=== PATIENT | female | born 1960 | race Caucasian/White ===

== ENCOUNTER 2024-01-31 08:00 | Emergency (ER) | payer OTHER, SELFPAY ==
[2024-01-31 08:10] VITALS: BP 168/108; PULSE 80; TEMP 36.6; O2SAT 96; BMI 37.9
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
--- NOTE | 2024-01-31 08:25 | ED.GENADUL1 ---
HPI HPI - General Adult General Chief complaint: Extremity Injury, Upper Stated complaint: UPPER EXTREMITY PAIN Time Seen by Provider: 01/31/24 08:17 Source: patient Mode of arrival: walk-in Limitations: no limitations History of Present Illness HPI narrative: 63-year-old female presents for pain in her right upper arm. It has been like that for a week and she recalls no injury. She has no pain in the elbow or the shoulder, just in the right bicep area. It hurts more to push on it or move it into certain positions. Related Data Home Medications ?Medication ?Instructions ?Recorded ?Confirmed bupropion HCl 150 mg 24 hr tablet, 150 mg PO DAILY 01/31/24 01/31/24 extended release celecoxib 200 mg capsule 200 mg PO Q12H 01/31/24 01/31/24 Allergies Allergy/AdvReac Type Severity Reaction Status Date / Time No Known Drug Allergies Allergy Verified 01/31/24 08:09 Opioid HPI Opioid Management Most Recent Opioid Data: Last Pain Scale 5 01/31/24 08:22 Last ED Pain Assessment 01/31/24 08:20 Review of Systems ROS Narrative A ten point review of systems is negative except as noted above. Exam Narrative Exam Narrative: Nurses note and vital signs reviewed and patient is not hypoxic. General: The patient appears well and in no apparent distress. Patient is resting comfortably on cart. Skin: Warm, dry, no pallor noted. There is no rash noted. Head: Normocephalic, atraumatic Eye: Normal conjunctiva, no drainage Ears, Nose, Mouth, and Throat: oral mucosa is moist. Nares patent. Cardiovascular: Regular Rate and Rhythm Respiratory: Patient is in no distress, no accessory muscle use, lungs are clear to auscultation, no wheezing, rales or rhonchi GI: Soft and nontender Musculoskeletal: The right elbow and shoulder are nontender and have full range of motion. She has some tenderness without any swelling mass bruising or rash in the right bicep area. Neurological: A&O, normal speech Psychiatric: Cooperative Constitutional Vital Signs, click to edit/add: Last Vital Signs Temp 98 F 01/31/24 08:10 Pulse 80 01/31/24 08:10 Resp 20 01/31/24 08:10 BP 168/108 H 01/31/24 08:10 Pulse Ox 96 01/31/24 08:10 O2 Del Method Room Air 01/31/24 08:10 Course Vital Signs Vital signs: Vital Signs Temperature 98 F 01/31/24 08:10 Pulse Rate 80 01/31/24 08:10 Respiratory Rate 20 01/31/24 08:10 Blood Pressure 168/108 H 01/31/24 08:10 Pulse Oximetry 96 01/31/24 08:10 Oxygen Delivery Method Room Air 01/31/24 08:10 Temperature 98 F 01/31/24 08:10 Pulse Rate 80 01/31/24 08:10 Respiratory Rate 20 01/31/24 08:10 Blood Pressure 168/108 H 01/31/24 08:10 Pulse Oximetry 96 01/31/24 08:10 Oxygen Delivery Method Room Air 01/31/24 08:10 Medical Decision Making MDM Narrative Medical decision making narrative: X-rays negative except for degenerative changes in the acromioclavicular joint area. Sling applied, application checked by me and found to be appropriate, she is neurovascular intact. I have no clinical suspicion of DVT. Treatment diagnosis and follow-up were discussed with the patient. Differential Diagnosis Differential Diagnosis: Muscle strain, arthritis Imaging Data Humerus x-ray: Radiologist's impression: ITS Impressions Humerus X-Ray 01/31/24 08:25 IMPRESSION: 1. No acute bone abnormality or bone lesion. 2. Degenerative changes of acromioclavicular joint. Electronically authenticated by: RAPHAEL HERMAN Date: 01/31/2024 09:18 Discharge Plan Discharge Stand Alone Forms: Portal Instructions Chief Complaint: Extremity Injury, Upper Clinical Impression: Arm pain, right Patient Disposition: Home, Self-Care Time of Disposition Decision: 09:31 Condition: Good Mode of Transportation: Private Vehicle Prescriptions / Home Meds: No Action celecoxib 200 mg capsule 200 mg PO Q12H bupropion HCl 150 mg tablet extended release 24 hr 150 mg PO DAILY Print Language: Kazakh Instructions: Arm Pain (ED) Referrals: Oz Lehman MD [Primary Care Provider] - 1 week
== END 2024-01-31 09:47 | disposition home or self-care (01) ==
PROVIDERS: Emergency Provider Emergency Medicine; PCP Family Medicine
DX: M79.621 Pain in right upper arm (principal); Z79.899 Other long term (current) drug therapy
CPT/HCPCS: 73060; 99283

== ENCOUNTER 2024-06-21 15:00 | Emergency (ER) | payer OTHER, MEDICARE, SELFPAY ==
[2024-06-21 15:02] VITALS: BP 185/85; PULSE 87; TEMP 36.7; O2SAT 97; BMI 36.6
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
[2024-06-21 15:48] LABS: Basophils Percent Auto 0.3 % (0.2-2.0); Eosinophils Absolute Auto 0.1 10^3/uL (0.0-0.7); Eosinophils Percent Auto 1.4 % (0.9-7.0); Hemoglobin 13.1 g/dL (12.0-16.0); Immature Granulocytes Abs Auto 0.01 10^3/uL (0.00-0.03); Immature Granulocytes Pct Auto 0.1 % (0.0-0.5); Lymphocytes Percent Auto 32.1 % (20.5-60.0); Mean Corpuscular HGB Conc 32.8 g/dL (29.9-35.2); Mean Corpuscular Hemoglobin 29.7 pg (26.7-34.0); Mean Corpuscular Volume 90.7 fL (81.0-99.0); Mean Platelet Volume 10.9 fL (9.5-13.5); Monocytes Absolute Auto 0.6 10^3/uL (0.3-0.8); Monocytes Percent Auto 6.5 % (1.7-12.0); Neutrophils Absolute Auto 5.5 10^3/uL (1.4-6.5); Neutrophils Percent Auto 59.6 % (43.0-75.0); Platelet Count 290 10^3/uL (150-450); Red Blood Count 4.41 10^6/uL (4.20-5.40); Red Cell Distribution Width 13.3 % (11.0-15.0); White Blood Count 9.2 10^3/uL (4.0-11.0)
[2024-06-21] MEDS: ADACEL DIPH,PERTUSS(ACELL),TET VAC/PF 0.5 ML ADULT SYRINGE IM (15:50)
[2024-06-21 16:00] LABS: Anion Gap 9.3; BUN Creatinine Ratio 20.7; Calcium 8.7 mg/dL (8.5-10.1); Carbon Dioxide 29.3 mmol/L (21.0-32.0); Chloride 106 mmol/L (98-107); Estimated GFR (African America >60 (>=60); Estimated GFR (Non-African Ame >60 (>=60); Glucose 102 mg/dL (74-106); Potassium 3.6 mmol/L (3.5-5.1); Sodium 141 mmol/L (136-145)
== END 2024-06-21 16:24 | disposition home or self-care (01) ==
PROVIDERS: Emergency Provider Emergency Medicine; PCP Family Medicine
DX: S30.1XXA Contusion of abdominal wall, initial encounter (principal); S80.212A Abrasion, left knee, initial encounter; V44.5XXA Car driver injured in collision with heavy transport vehicle or bus in traffic accident, initial encounter; Z23 Encounter for immunization
CPT/HCPCS: 36415; 74177; 80048; 85025; 90471; 90715; 99285; Q9967

== ENCOUNTER 2024-06-26 10:18 | Emergency (ER) | payer MEDICARE, SELFPAY ==
[2024-06-26 10:21] VITALS: BP 145/83; PULSE 92; TEMP 36.9; O2SAT 94; BMI 39.4
--- OUTSIDE RECORDS SUMMARY | 2024-06-26 10:29 | XMS_ITS | CCD ---
Author Organization [facility] Informat ion Partnership [facility] Care Team Providers Care Hand Suture Winder Name Role Phone ИРИНА, CARLIE T Unavailable Unavailable CARLIE GIFFORD T Unavailable Unavailable RUBI CONTRERAS Unavailable Unavailrashawn e DIANE, DR RUBI Alcantara Primary Care Unavailable NADERER, DR RUBI Alcantara Admitting Unavailable NADERER, DR RUBI Alcantara Attending Unavailable NADERER, DR RUBI Alcantara Consulting Unavailable NADERER, DR RUBI Alcantara Admitting Unavailable NADERELizzy, DR RUBI Alcantara Attending Unavailable NADERER, DR RUBI Alcantara Consulting Unavailable NADERER, DR RUBI Alcantara Primary Care Unavailable Bhaskar Cantu Consulting Unavailable Dennis Hernandez Unavailable Kota Johnson Unavailable RUBI CONTRERAS Attending Unavailable RUBI CONTRERAS Attending Unavailable Medications Current Medications Medication Drug Class(es) Dates Sig (Normalized) Sig (Original) acetaminophen 325 mg / oxyCODONE hydrochloride 5 mg oral tablet (4 sources) Opioid Agonist oxyCODONE-Acetam i nophen 5-325 MG Oral for 7 Active ALPRAZolam 1 mg oral tablet (4 sources) Benzodiazepine ALPRAZolam 1 MG Oral for 30 Active 24 hr buPROPion hydrochloride 150 mg extended release oral tablet (4 sources) Aminoketone buPROPion HCl ER (XL) 150 MG Oral for 30 Active dexamethasone 4 mg oral tablet (3 sources) Corticosteroid take 1 tablet by mouth every twenty-four hours Decadron 4 MG 1 tablet Orally Once a day Active gabapentin 300 mg oral capsule (4 sources) Anti-epileptic Agent Gabapentin 300 MG Oral for 30 Active Problems Active Problems Problem Classification Problem Date Documented Da te Episodic/Chronic Other nervous system disorders (3 sources) Chronic pain; Translations: [Other chronic pain] Chronic Other nervous system disorders (1 source) Other chronic pain Onset: 10-17-2021 Resolved: 10-17-2021 Chronic Spondylosis; intervertebral disc disorders; other back problems (8 sources) Other spondylosis with radiculopathy, lumbosacral region; Translations: [Lumbosacral spondylosis without myelopathy] Onset: 09-04-2021 Resolved: 10-17-2021 Chronic Unclassified (1 source) RETINAL DETACHMENT RIGHT EYE / RETINAL DETACHMENT RIGHT EYE() Onset: 02-19-2018 Unclassified (2 sources) CONTACT W/AND (SUSP) EXPOS COVID-19; Translations: [CONTACT W/AND (SUSP) EXPOS COVID-19] Onset: 10-16-2021 Viral infection (1 source) COVID-19; Translations: [COVID-19] Onset: 10-16-2021 Past or Other Problems Problem Classification Problem Date Documented Date Episodic/Chronic Spondylosis; intervertebral disc disorders; other back problems (5 sources) Intervertebral disc disorders with radiculopathy, lumbar region; Translations: [Lumbar disc prolapse with radiculopathy] Onset: 09-26-2021 Resolved: 10-17-2021 Episodic Unclassified (1 source) RETINAL DETACHMENT RIGHT EYE; Translations: [RETINAL DETACHMENT RIGHT EYE] Onset: 02-19-2018 Unclassified (1 source) CONTACT W/AND (SUSP) EXPOS COVID-19; Translations: [CONTACT W/AND (SUSP) EXPOS COVID-19] Onset: 10-09-2021 Results Test Name Value Interpretation Reference Range Facility XR Spine Lumbar Flex AND Ext Onlyon 12-27-2021 XR Spine Lumbar Flex AND Ext Only FINDINGS: T11-T12 through L2-3: Normal alignment, no change. L3-4: 2 mm retrolisthesis no change. L4-5: Approximate 7 mm anterolisthesis fused segment, intervertebral disc spacer, no change. L5-S1 : Fused segment, intervertebral disc space, minimal anterolisthesis no change. IMPRESSION: 1. L4-S1 fusion, minimal retrolisthesis L3 upon L4, no change with flexion and extension. Report reported and signed by Adarsh Dougherty on 12/27/2021 0945 Normal [facility] Covid-19 PCR (CVDTB)on 09-13 SARS-CoV-2 (COVID-19) RNA BOONE+probe Ql (Unsp spec) Detected Critically abnormal NOT DETECTED [facility] Comment on above: Result Comment: This test is not yet approved or cleared by the [place] FDA. When there are no FDA-approved or cleared tests available, and other criteria are met, FDA can make tests available under an emergency access mechanism called an Emergency Use Authorization (EUA). The EUA for this test is supported by the [place] of Health and Human Service's (HHS's) declaration that circumstances exist to justify the emergency use of in vitro diagnostics for the detection and/or diagnosis of the virus that causes COVID-19. This EUA will remain in effect (meaning this test can be used) for the duration of the COVID-19 declaration justifying emergency of IVDs, unless it is terminated or revoked by FDA (after which the test may no longer be used). Performed By: #### [facility] #### [facility] [address] [address] [address] Teresita Stein [place] 09-04-20 MRI [facility] MRI LUMBAR SPINE WITHOUT CONTRAST, 09/04/2021 HISTORY: Low back pain. Radiculopathy. Right hip and leg pain. COMPARISON: MRI lumbar spine without contrast, 07/10/2017. TECHNIQUE: Sagittal T1, T2, STIR, axial T1 and T2 images were obtained. FINDINGS: There are postoperative changes from posterior interbody fusion and fixation at L4-L5 and L5-S1. There is grade 1 spondylolisthesis at L4-L5. There is a chronic loculated seroma in the laminectomy site at the L5-S1 level without significant mass effect on the thecal sac. There is retrolisthesis at L3-L4 measuring approximately 3 mm that is new. Degenerative disc disease at L3-L4 is worse than on the prior. There are a few incidental vertebral body hemangioma. The largest hemangioma is in the L1 vertebral body measuring 2.3 cm. L5-S1, status post interbody fusion and fixation. The spinal canal is decompressed. No residual spinal canal stenosis at this level. Left foraminal osteophyte results in moderate left foraminal narrowing. Right foraminal osteophyte results in mild right foraminal narrowing. Foraminal narrowing has improved. L4-L5, there are postoperative changes from interbody fusion and fixation. Grade 1 spondylolisthesis is stable. The spinal canal see compressed. No spinal stenosis. No significant neural foraminal narrowing. L3-L4, moderate degenerative disc disease is worse than on the prior. Grade 1 retrolisthesis is new. There is diffuse disc bulge. Severe facet arthropathy is worse. There is ligamentum flavum thickening and disc bulge resulting in moderate central canal stenosis. There is a new right paracentral disc extrusion migrating above the level of the disc space measuring approximately 10 mm. This results in severe stenosis of the right lateral recess at the L3 level. This compresses the right L3 nerve root proximal to the right neural foramen. There is severe right neural foraminal narrowing that is new. Mild left foraminal narrowing is worse. L2-L3, mild degenerative disc disease with disc desiccation. No spinal stenosis. No foraminal narrowing. L1-L2, no spinal stenosis. No foraminal narrowing. No abnormal signal in the conus medullaris. No paraspinal mass. IMPRESSION: 1. There are postoperative changes at L4-L5 and L5-S1 from posterior lumbar interbody fusion and pedicle screw and ajit fixation. No spinal stenosis at these levels. Previously seen spinal canal stenosis at these levels has resolved. 2. At L3-L4, moderate degenerative disc disease is worse. Grade 1 retrolisthesis measuring 3 mm is new. Facet arthropathy is worse. There is moderate central canal stenosis. There is a right paracentral disc extrusion migrating above the level of the disc space compressing the right L3 nerve root. Severe right foraminal narrowing is worse. Electronically authenticated by: BHASKAR CANTU Date: 2021-09-04 17:13 Normal [facility] Lipid Panelon 12-21-2020 Cholesterol [Mass/Vol] 175 mg/dL Normal 140-200 [facility] Comment on above: Result Comment: Chol less than 200 mg/dl low risk Chol 201-239 mg/dl borderline risk Chol 240 mg/dl and greater high risk Performed By: #### V [id number], TSH3 wRFLX, LIPID #### [address] Cholesterol in HDL [Mass/Vol] 49 mg/dL Normal 35-85 [facility] Comment on above: Result Comment: HDL CHOL ATP-III CLASSIFICATION Cardiovascular Risk HDL > or equal to 60 mg/dL LOW HDL < 40 mg/dL HIGH Performed By: #### V [id number], TSH3 wRFLX, LIPID #### [facility] [address] [place] [address] [place] Cholesterol.total /Cholesterol in HDL [Mass ratio] 3.6 {ratio} Normal <5.0 [facility] Comment on above: Performed By: #### V [id number], TSH3 wRFLX, LIPID #### [facility] [address] LDL Cholesterol,Calcu lated 108 mg/dL High 0-100 [facility] Comment on above: Result Comment: LDL ATP III CLASSIFICATION LDL less than 100 mg/dL Optimal LDL 100-129 mg/dL Near or above optimal LDL 130-159 mg/dL Borderline high LDL 160-189 mg/dL High LDL greater than 189 mg/dL Very high Performed By: #### V [id number], TSH3 wRFLX, LIPID #### [address] Triglyceride w/Reflex 88 mg/dL Normal 35-149 [facility] Comment on above: Result Comment: TRIG ATP III CLASSIFICATION TRIG less than 150 mg/dL Normal TRIG 150-199 mg/dL Borderline high TRIG 200-500 mg/dL High TRIG greater than 500 mg/dL Very high Standard traceable to the Center for Disease Conrtrol and Prevention (CDC) test method. Performed By: #### V [id number], TSH3 wRFLX, LIPID #### [facility] [address] VLDL CHOLESTEROL 17 mg/dL Normal [facility] Comment on above: Performed By: #### V [id number], TSH3 wRFLX, LIPID #### [facility] [address] [place] [id number] [place] Thyroid Stim Hormone w/Rflxo n 12-21-2020 Thyroid Stim Hormone w/Rflx 0.91 u[iU]/mL Normal 0.45-5.33 [facility] Comment on above: Performed By: #### V [id number], TSH3 wRFLX, LIPID #### [facility] [address] [place] [address] [place] Vitamin D 25 Hydroxy Totalon 12-21-2020 Vitamin D 25 Hydroxy Total 18.7 ng/mL Low 30-100 [facility] Comment on above: Result Comment: DENNY MIN D STATUS 25(OH)VITAMIN D RANGE (ng/mL) Deficient <20 Insufficient 20 to <30 Sufficient 30 to 100 Reference: Manuel MF,Germaine NC, Shira FERRER, et al. Evaluation,treatment, and prevention of vitamin D deficiency; an Endocrine Society clinical practice guideline. JCEM. 2010; 96(7):1911-30. PERFORMED BY: [place] [address] PATHOLOGIST DIRECTOR OF MARKET RESEARCH NANETTE MOTA M.D. Performed By: #### V [id number], TSH3 wRFLX, LIPID #### [address] History and Physicalon 02-19 HIM IP Note OR Field Service Supervisor [facility] OPERATIVE REPORTon 8 OPERATIVE REPORT [address] [address] OPERATIVE REPORTPATIENT NAME: ACACIA NAIK : 1960MED REC NO: [id number] ROOM:ACCOUNT NO: [id number] ADMIT DATE: 02/19/2018PROVIDER: Carlie BraunenDATE OF PROCEDURE: 02/19/2018PREOPERATIVE DIAGNOSIS: Rhegmatogenous retinal detachment with macula on,right eye.POSTOPERATIVE DIAGNOSIS: Rhegmatogenous retinal detachment with macula on,right eye.PROCEDURES: Pars plana vitrectomy with gas-fluid exchange and endolaser,right eye.ANESTHESIA: Monitored.SURGEON: ALONDRA ValeroEASON FOR OPERATION: The patient is a 57-year-old woman who initiallypresented with a superotemporal retinal detachment due to a large horseshoetear at 10:30. She was treated with pneumatic retinopexy. Postoperatively, her large tear was closed, but she developed a retinaldetachment inferiorly. This increased over several days and we scheduledher for surgery. Her macula remained attached. There was no definite tearseen in the office, but did appear to be a small area of lattice at 07:30. She understands the risks include, but are not limited to, bleeding,infection, and recurrent retinal detachment. She understands it is verylikely she will develop a cataract within 6 months to 2 yearspostoperatively.DE SCRIPTION OF PROCEDURE: The patient was brought to the operating room ingood condition. She was administered local anesthetic and prepped anddraped in the usual fashion. 25-gauge vitrectomy trocars were placedthrough the pars plana in the usual quadrants. Infusion was attached tothe inferotemporal site. Light pipe and ocutome were placed through thesuperior sites. A gas bubble that was in the eye was removed. Vitreouswas removed from anterior to posterior. There were some largedegenerative-type floaters. The vitreous was trimmed out as far as couldbe seen. Scleral depression was used inferiorly to trim the vitreous base.The retina was examined. There was possible small tear at the site oflattice. There was also a very tiny flap, which may have been opened at06:30. All of this was anterior to the equator. I placed endolaser fromthe equator to the ora in all areas that were attached, except for the 3o'clock and 9 o'clock. I did an air-fluid exchange. I aspiratedsubretinal fluid just posterior to the equator at 7 o'clock. Thesubretinal fluid in this location appeared to be quite thick. This allowedme to place endolaser around from the equator to the ora inferiorly andtemporally, where the detachment had been. I lasered around theretinotomy. I let some laser behind the equator. Residual fluid wasaspirated over the optic nerve head. The air was exchanged for 18% SF6. The trocars were removed, and the sites were closed with interrupted 6-0gut. 50 mg ceftazidime was injected sub-Tenon's in the inferonasalquadrant. The patient was taken to the operating room in good condition.I believe I did not mention above that the subretinal fluid wasconsiderably less in the operating room than it had been in the office.CARLIE BRAUNEND: 02/19/2018 13:25:24 [id number]#: [id number] Doc#: [id number]: [facility] Op Noteon 02-19-2018 HIM IP Note OR Field Service Supervisor [facility] Progress Noteon 02-19-2018 HIM IP Note OR Field Service Supervisor [facility] HIM IP Note OR Field Service Supervisor [facility] HIM IP Note OR Field Service Supervisor [facility] HIM IP Note OR Field Service Supervisor [facility] HIM IP Note OR Field Service Supervisor [facility] HIM IP Note OR Field Service Supervisor [facility] Vital Signs Date Time Vital Sign Value Performing Clinician Facility 09-26-2021 10:30-0500 Body height 167.64 cm Dennis Hernandez Other [facility] 09-26-2021 10:30-0500 Body mass index (BMI) [Ratio] 32.44 kg/m2 Dennis Hernandez Other [facility] 09-26-2021 10:30-0500 Body weight 91.17 kg Dennis Hernandez Other [facility] Other 09-26-2021 10:30-0500 Diastolic blood pressure 76 mm[Hg] Dennis Hernandez Other [facility] Other 09-26-2021 10:30-0500 Systolic blood pressure 130 mm[Hg] Dnenis Hernandez Other [facility] Other Encounters Encounter Date Encounter Type Care Provider Facility Start: 05-26-2024 End: 05-26-2024 ambulatory RUBI CONTRERAS Not Available Start: 02-20-2024 End: 02-20-2024 ambulatory RUBI CONTRERAS Not Available Start: 10-30-2021 (Procedure) Laxmi Johnson [facility] Start: 10-30-2021 End: 10-30-2021 ambulatory Kota Johnson Other [facility] Start: 10-19-2021 End: 10-19-2021 ambulatory Kota Johnson Other [facility] Start: 10-19-2021 Telephone encounter Kota Johnson [facility] Bilingual [facility] Start: 10-17-2021 End: 10-17-2021 ambulatory Kota Johnson Other [facility] Start: 10-17-2021 Office outpatient ne w 45 minutes Kota Johnson [facility] Start: 10-09-2021 End: 10-09-[address] RUBI CONTRERAS Facility:[facility] Start: 09-26-2021 End: 09-26-2021 ambulatory Dennis Hernandez Other [facility] Start: 09-26-2021 Office outpatient ne w 30 minutes Dennis Hernandez [facility] Start: 09-04-2021 End: 09-05-[address] RUBI CONTRERAS Facility:[facility] Start: 02-19-2018 End: 02-19-2018 Ambulatory CARLIE GIFFORD [facility] Procedures Date Procedure Procedure Detail Performing Clinician Start: 02-19-2018 DISCHARGE PATIENT DAKOTAH SHAWLSEN Start: 02-19-2018 Continuous pulse oximetry CARLIE GIFFORD Start: 02-19-2018 ENCOURAGE DEEP BREAT AMANDA AND COUGHING CARLIE GIFFORD Start: 02-19-2018 NURSING COMMUNICATION P JH GIFFORD Start: 02-19-2018 BEDREST CARLIE MOULTON Start: 02-19-2018 INITIATE OXYGEN THER APY PROTOCOL CARLIE GIFFORD Start: 02-19-2018 NOTIFY PHYSICIAN (SPECIFY) CARLIE GIFFORD Start: 02-19-2018 POC UR-QUAL P JH GIFFORD Start: 02-19-2018 VITAL SIGNS CARLIE MOULTON Payers Date Payer Category Payer Medicare [id number] 2023 Unknown [id number] 2017 Unknown [id number] 1960 Unknown [id number] 1960 Unknown [id number] 2.16.84 [id number] 1960 Unknown [id number] 2.16.84 [id number] 1960 Unknown [id number] 2.16.84 [id number] 1960 Unknown [id number] 2.16.84 [id number] Social History Date Type Detail Facility Sex Assigned At [facility] Other Clinical Note 12-27-2021 Note Date & Type Note Facility 12-27-2021 Note PROCEDURE: [employer] VCT 64, 5 mm slice axial images were acquired with coronal reconstruction through the lumbar without contrast. FINDINGS: L4-S1 pedicle screw fusion hardware, intervetebral disc spacer. No osseous or hardware fracture. Vacuum disc formation, 3 mm retrolisthesis above the level of fusion, L3 upon L4. Unremarkable paravertebral soft tissues. Cystic changes of the left kidney likely peripelvic cyst formation and/or UPJ stenosis. No stone formation. Non-distended ureters. T11-T12 through L2-3: Minimal disc space loss, no significant disc herniation or significant spinal canal or neuroforaminal stenosis. L3-L4: Moderate to severe disc space loss. 3 mm retrolisthesis. Asymmetric soft tissue density occupies the right lateral recess and right neuroforaminal zone compared to the left obliterating the normal fat within the right lateral recess. Diagnostic considerations to include disc herniation and/or synovial cyst formation. Prominent bilateral facet arthropathy. No fracture. No significant osseous canal stenosis. L4-5 and L5-S1: No osseous or hardware fracture, laminectomy, pedicle screw artifact. No significant canal stenosis. IMPRESSION: 1. L4-S1 fusion, symmetric findings L3-L4, likely moderate to severe stenosis of the right lateral recess (disc material and/or facet arthropathy, synovial cyst formation). MRI as tolerated by the patient may be of assistance. Report reported and signed by Adarsh Dougherty on 12/27/2021 1140 [facility] School Business Administrator Evaluation note 10-17-2021 Note Date & Type Note Facility 10-17-2021 Evaluation note Encounter Date Diagnosis Assessment Notes Oct, Other spondylosis with radiculopathy, lumbar region (ICD-10 - M47.26) Patients primary complaint today is lumbar pain radiating into the anterior aspect of her right lower extremity, extending past her knee into her foot. Recent MRI results show evidence of disc extrusion at L3, which is consistent with her pain symptoms. Based on these results, as well as location of pain and exam findings, patient is a candidate for a right lumbar transforaminal epidural steroid injection which we will proceed with. Risks and benefits of procedure explained to patient; patient verbalizes understanding. Anatomy of spine discussed in detail with patient in regards to patients condition. Oct, Lumbar disc herniation with radiculopathy (ICD-10 - M51.16) Oct, Chronic pain (ICD-10 - G89.29) Oct, Other Above note written by Walter Rey MA, Cycle Director. Edited and approved by Dr. Kota Johnson MD Medical decision making shows a new problem to me with further workup planned or suggested with the potential for extensive treatment options that were considered with the most applicable given this patient's situation as noted above. Treatment options considered include a combination of physical therapy approaches, pharmacologic management, and interventional procedures. Those most applicable to the patient were discussed at this time. Risk of complications and/or morbidity and mortality is high given that acute and chronic pain poses a threat to life and bodily function if undertreated, poorly treated or with failure to maintain adequate treatment and timely followup. Given the serious and fluctuating nature of pain with extensive consideration for whenever pain changes, there always remains the possibility of prolonged functional impairment requiring constant patient reassessment and high-level medical decision making. The amount and complexity of data reviewed is high given that patient labs, radiology reports, and other test were obtained, reviewed and summarized as applicable from the physician portal and/or outside medical records. Pertinent positive and negative findings were considered in medical decision-making. 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 As such I think at least a trial of conservative therapy would be appropriate of like her to be seen by pain management for possible focal L3 nerve root injection. Ultimately if she came to surgical intervention I probably would not fuse her at this time and probably just a straightforward discectomy. [facility] Other Evaluation note Note Date & Type Note Facility Evaluation note No Information [facility] Other History general Narrative - Reported Note Date & Type Note Facility History general Narrative - Reported Type Medical History anxiety Medical History RA Medical History chronic depression Surgical History biopsy of rt breast Surgical History half of thyroid removed Surgical History back surgery-Doctor Akatsuki 2017 Hospitalization History childbirth Hospitalization History See Above [facility] Other History general Narrative - Reported Note Date & Type Note Facility History general Narrative - Reported Type Medical History anxiety Medical History RA Medical History chronic depression Surgical History biopsy of rt breast Surgical History half of thyroid removed Surgical History back surgery-Doctor Lee 2017 Surgical History L wrist Surgery Hospitalization History childbirth Hospitalization History See Above [facility] Other Summary Purpose Family History No Family History Records FoundNo Family History Records FoundNo Family History Records FoundNo Family History Records FoundNo Family History Records Found Advance Directives No Advanced Directives Records FoundNo Advanced Directives Records FoundNo Advanced Directives Records FoundNo Advanced Directives Records FoundNo Advanced Directives Records Found Reason for Referral Reason 10/17/21 @ 8:30am Evaluate and Treat ; (R) L3 root injection Diagnosis 1 Lumbar disc herniati on with radiculopathy (M51.16) Referral Organization [facility] urosurgery Referring Provider First Name Dennis Referring Provider Last Name Ora Referring Provider Specialty Neurosurger y Referred Organization [facility] Referred Provider Kota Johnson Referred Address [address],[place],[address] Referred Provider Specialty Pain Medicin e Referral Priority Routine Referral Appointment Date 2021-10-17 General Notes JessicaLisakate Capellan 021 08:10:32 AM >Received today and sent [id number] Lopez Timi 10/04/2021 09:30:17 AM >Patient has been scheduled Additional Source Comments INFORMATION SOURCE (unrecogn ized section and content) DATE CREATED AUTHOR 04/01/2018 [facility] DATE CREATED AUTHOR AUTHOR'S ORGANIZ ATION 10/01/2021 [facility] DATE CREATED AUTHOR AUTHOR'S ORGANIZ ATION 10/17/2021 [facility] DATE CREATED AUTHOR AUTHOR'S ORGANIZ ATION 12/27/2021 [facility] dical Specialist DATE CREATED AUTHOR AUTHOR'S ORGANIZ ATION 05/27/2024 [facility] dical Specialists EPIC REASON FOR VISIT (unrecogniz ed section and content) Refer Naderer Lumbar Spondyl osis w RadiculopathyREF BY DR HERNANDEZ FOR LUMBAR DISC HERNIATION WITH RIGHT SIDED RADICULOPATHYReferral - pain managementRIGHT LUMBAR TRANSFORAMINAL EPIDURAL STEROID INJ L3/DS FOR RECORDS PERTAINING TO PATIENTS WHO ARE OR HAVE BEEN ENROLLED IN A CHEMICAL DEPENDENCY/SUBSTANCEABUSE PROGRAM, SOME INFORMATION MAY BE OMITTED. This clinical summary was aggregated from multiple sources. Caution should be exercised in using it in the provision of clinical care. This summary normalizes information from multiple sources, and as a consequence, information in this document may materially change the coding, format and clinical context of patient data. In addition, data may be omitted in some cases. CLINICAL DECISIONS SHOULD BE BASED ON THE PRIMARY CLINICAL RECORDS. [employer] provides no warranty or guarantee of the accuracy or completeness of information in this document.
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
[2024-06-26 10:44] LABS: Basophils Percent Auto 0.3 % (0.2-2.0); Eosinophils Absolute Auto 0.2 10^3/uL (0.0-0.7); Eosinophils Percent Auto 1.7 % (0.9-7.0); Hematocrit 38.9 % (36.0-48.0); Hemoglobin 12.9 g/dL (12.0-16.0); Immature Granulocytes Abs Auto 0.02 10^3/uL (0.00-0.03); Immature Granulocytes Pct Auto 0.2 % (0.0-0.5); Lymphocytes Absolute Auto 2.1 10^3/uL (1.2-3.8); Lymphocytes Percent Auto 23.7 % (20.5-60.0); Mean Corpuscular HGB Conc 33.2 g/dL (29.9-35.2); Mean Corpuscular Hemoglobin 30.1 pg (26.7-34.0); Mean Corpuscular Volume 90.9 fL (81.0-99.0); Mean Platelet Volume 10.5 fL (9.5-13.5); Monocytes Absolute Auto 0.8 10^3/uL (0.3-0.8); Monocytes Percent Auto 8.6 % (1.7-12.0); Neutrophils Absolute Auto 5.8 10^3/uL (1.4-6.5); Neutrophils Percent Auto 65.5 % (43.0-75.0); Platelet Count 308 10^3/uL (150-450); Red Blood Count 4.28 10^6/uL (4.20-5.40); Red Cell Distribution Width 13.6 % (11.0-15.0); White Blood Count 8.8 10^3/uL (4.0-11.0)
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
[2024-06-26 11:35] VITALS: BP 138/88; PULSE 78; O2SAT 96
== END 2024-06-26 11:40 | disposition home or self-care (01) ==
PROVIDERS: Emergency Provider Emergency Medicine Emergency Medical Services; PCP Family Medicine
DX: S30.1XXA Contusion of abdominal wall, initial encounter (principal); S40.022A Contusion of left upper arm, initial encounter; V89.2XXA Person injured in unspecified motor-vehicle accident, traffic, initial encounter
CPT/HCPCS: 36415; 85025; 93971; 99284

== ENCOUNTER 2024-11-24 08:43 | Outpatient (OUT) | payer MEDICARE, SELFPAY ==
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
[2024-11-24 09:18] LABS: Basophils Percent Auto 0.2 % (0.2-2.0); Eosinophils Absolute Auto 0.1 10^3/uL (0.0-0.7); Hematocrit 41.4 % (36.0-48.0); Hemoglobin 13.3 g/dL (12.0-16.0); Immature Granulocytes Abs Auto 0.02 10^3/uL (0.00-0.03); Immature Granulocytes Pct Auto 0.2 % (0.0-0.5); Lymphocytes Absolute Auto 2.8 10^3/uL (1.2-3.8); Lymphocytes Percent Auto 28.2 % (20.5-60.0); Mean Corpuscular HGB Conc 32.1 g/dL (29.9-35.2); Mean Corpuscular Hemoglobin 29.8 pg (26.7-34.0); Mean Corpuscular Volume 92.6 fL (81.0-99.0); Mean Platelet Volume 10.5 fL (9.5-13.5); Monocytes Absolute Auto 0.9 10^3/uL (0.3-0.8); Monocytes Percent Auto 8.8 % (1.7-12.0); Neutrophils Absolute Auto 6.2 10^3/uL (1.4-6.5); Neutrophils Percent Auto 61.6 % (43.0-75.0); Platelet Count 339 10^3/uL (150-450); Red Blood Count 4.47 10^6/uL (4.20-5.40)
[2024-11-24 09:41] LABS: Alanine Aminotransferase 13 U/L (14-59); Albumin Globulin Ratio 0.8; Albumin Level 3.5 g/dL (3.4-5.0); Alkaline Phosphatase 116 U/L (46-116); Aspartate Amino Transferase 10 U/L (15-37); Bilirubin Direct <0.1 mg/dL (0.0-0.2); Bilirubin Total 0.2 mg/dL (0.2-1.0); Calcium 9.2 mg/dL (8.5-10.1); Carbon Dioxide 32.2 mmol/L (21.0-32.0); Chloride 103 mmol/L (98-107); Chol HDL Ratio 2.9; Cholesterol 188 mg/dL (<=200); Estimated GFR (African America >60 (>=60 mL/min/1.73m^2); Estimated GFR (Non-African Ame 56 (>=60 mL/min/1.73m^2); Globulin 4.2 g/dL; Glucose 99 mg/dL (74-106); HDL Cholesterol 64 mg/dL (40-60); Potassium 4.2 mmol/L (3.5-5.1); Sodium 142 mmol/L (136-145); TSH W/ REFLEX FT4 1.433 uIU/mL (0.358-3.740); Total Protein 7.7 g/dL (6.4-8.2); Triglycerides 130 mg/dL (<=150)
== END 2024-11-24 08:44 | disposition home or self-care (01) ==
LOC: LAB 08:48
PROVIDERS: PCP Family Medicine; Visit Provider Family Medicine
DX: Z79.899 Other long term (current) drug therapy (principal); E66.813 Obesity, class 3; E66.01 Morbid (severe) obesity due to excess calories; Z68.41 Body mass index [BMI] 40.0-44.9, adult
CPT/HCPCS: 36415; 80048; 80061; 80076; 84443; 85025

== ENCOUNTER 2025-01-06 17:50 | Emergency (ER) | payer MEDICARE, SELFPAY ==
[2025-01-06 17:54] VITALS: BP 198/88; PULSE 104; TEMP 36.7; O2SAT 95
--- NOTE | 2025-01-06 18:02 | ED.BACK1 ---
HPI HPI - Back Pain/Injury General Chief Complaint: Back Pain/Injury Stated Complaint: LOWER BACK PAIN Time Seen by Provider: 01/06/25 17:51 Source: patient Mode of arrival: walk-in History of Present Illness HPI Narrative: Patient is a 64-year-old female who presents to the emergency department for the evaluation of low back pain across the low back that has been present for the last day. She has a history of 3 previous back surgeries. She states she has rods and screws. She denies any previous fractures. She has mild chronic paresthesia to the left lower extremity from the previous surgeries that is not new or different today. She denies any falls or injuries. She states she had difficulty getting out of bed today due to pain. She is noted to be sitting comfortably, able to transfer on the exam cart without difficulty. No medications prior to arrival. She does not take blood thinners. She has no abdominal pain or urinary symptoms, no fevers or vomiting. Related Data Home Medications ?Medication ?Instructions ?Recorded ?Confirmed celecoxib 200 mg capsule 200 mg PO Q12H 01/31/24 01/06/25 bupropion HCl 300 mg 24 hr tablet, 300 mg PO DAILY 06/26/24 01/06/25 extended release Previous Rx's ?Medication ?Instructions ?Recorded hydrocodone 5 mg-acetaminophen 325 1 tab PO Q6H PRN pain 3 days #12 01/06/25 mg tablet tabs methocarbamol 750 mg tablet 750 mg PO TID PRN pain #20 tabs 01/06/25 prednisone 20 mg tablet See Rx Instructions .Route 01/06/25 .COMPLEX #12 tabs Allergies Allergy/AdvReac Type Severity Reaction Status Date / Time No Known Drug Allergies Allergy Verified 06/21/24 15:08 Opioid HPI Opioid Management Most Recent Opioid Data: Last Pain Scale 4 01/06/25 18:25 01/06/25 Last MAR Pain Assessment 01/06/25 18:25 Review of Systems ROS Constitutional Denies: fever or chills Ears, nose, mouth, and throat Denies: throat pain or nasal congestion Cardiovascular Denies: chest pain Respiratory Denies: shortness of breath or cough Gastrointestinal Denies: abdominal pain, nausea, vomiting or diarrhea Genitourinary Denies: painful urination Musculoskeletal Reports: back pain; Denies: neck pain or extremity pain Integumentary/Breast Denies: rash Neurological Reports: numbness in extremities Hematologic/Lymphatic Denies: easy bruising or easy bleeding PFSH PFSH Medical History (Updated 01/06/25 @ 18:57 by WALT Reid) Depression ?F32.A - Depression, unspecified (ICD-10) Arthritis ?M19.90 - Unspecified osteoarthritis, unspecified site (ICD-10) Social History Little interest or pleasure in doing things: not at all Feeling down, depressed, or hopeless: not at all Exam Narrative Exam Narrative: Gen.: Awake, alert, in no distress Head: Normocephalic, atraumatic ENT: Moist mucous membranes Respiratory: No respiratory distress Back: Well-healed surgical incision over the lumbar spine. Bilateral paraspinal tenderness of the lumbar spine Gastrointestinal: Abdomen is soft, nondistended and nontender to palpation Extremities: Moves extremities equally, no injuries noted; normal dorsiflexion and plantarflexion of the lower extremities, normal hip flexion bilaterally. No decrease in sensation to the medial thighs Psych: Normal mood and affect Neuro: No focal neuro deficit Skin: Warm, dry, intact Constitutional Vital Signs, click to edit/add: Last Vital Signs Temp 98.0 F 01/06/25 17:54 Pulse 104 H 01/06/25 17:54 Resp 01/06/25 17:54 BP 198/88 H 01/06/25 17:54 Pulse Ox 95 01/06/25 17:54 O2 Del Method Room Air 01/06/25 17:54 Course Vital Signs Vital signs: Vital Signs Temperature 98.0 F 01/06/25 17:54 Pulse Rate 104 H 01/06/25 17:54 Respiratory Rate 20 01/06/25 17:54 Blood Pressure 198/88 H 01/06/25 17:54 Pulse Oximetry 95 01/06/25 17:54 Oxygen Delivery Method Room Air 01/06/25 17:54 Temperature 98.0 F 01/06/25 17:54 Pulse Rate 104 H 01/06/25 17:54 Respiratory Rate 20 01/06/25 17:54 Blood Pressure 198/88 H 01/06/25 17:54 Pulse Oximetry 95 01/06/25 17:54 Oxygen Delivery Method Room Air 01/06/25 17:54 MDM - Back Pain/Injury MDM Narrative Medical decision making narrative: CT of the lumbar spine shows fusion intact with no acute process. Patient is neurovascularly intact with no focal neurodeficits. Rest, ice, gentle stretching. Follow-up with PCP and return to the ER if symptoms change or worsen SUPERVISED APC VISIT, PHYSICIAN ATTESTATION: Based on the medical record the care appears appropriate. ? Medical Records Attestation: I reviewed the patient's medical records. Imaging Data CT lumbar spine: Attestation: I have reviewed the pertinent imaging results. Discharge Plan Discharge Chief Complaint: Back Pain/Injury Clinical Impression: Low back pain Patient Disposition: Home, Self-Care Time of Disposition Decision: 18:57 Condition: Good Prescriptions / Home Meds: New hydrocodone-acetaminophen 5-325 mg tablet 1 tab PO Q6H PRN (Reason: pain) 3 Days Qty: 12 0RF Rx Instructions: DX: M54.5 prednisone 20 mg tablet See Rx Instructions .ROUTE .COMPLEX Qty: 12 0RF Rx Instructions: 3 tabs daily for 2 days, then 2 tabs daily for 2 days, then 1 tab daily for 2 days methocarbamol 750 mg tablet 750 mg PO TID PRN (Reason: pain) Qty: 20 0RF No Action celecoxib 200 mg capsule 200 mg PO Q12H bupropion HCl 300 mg tablet extended release 24 hr 300 mg PO DAILY Print Language: Greenlandic Instructions: Acute Low Back Pain (ED) Referrals: Oz Lehman MD [Primary Care Provider] - 1 week
[2025-01-06] MEDS: METHYLPREDNISOLONE SOD SUCC PF 125 MG/2 ML VIAL IM (18:25)
[2025-01-06] MEDS: KETOROLAC TROMETHAMINE 30 MG/ML VIAL IM (18:25)
== END 2025-01-06 19:06 | disposition home or self-care (01) ==
PROVIDERS: Emergency Provider Emergency Medicine; PCP Family Medicine
DX: M54.50 Low back pain, unspecified (principal); Z98.1 Arthrodesis status
CPT/HCPCS: 72131; 96372; 99285; J1885; J2919

== ENCOUNTER 2025-05-02 10:09 | Outpatient (OUT) | payer MEDICARE, SELFPAY ==
--- NOTE | 2025-05-02 10:18 | US_ITS ---
The [address] [address] Patient Name: ACACIA NAIK MRN: [id number] date: 1960 Sex: F Assigned Patient Location: [place] Current Patient Location: US Accession/Order Number: [id number] Exam Date: 05/02/2025 11:36 Report Date: 05/02/2025 11:38 At the request of: RUBI CONTRERAS MD Procedure: US extremity nonvascular LT Soft tissue ultrasound. Reason for exam: Left arm hematoma. Left arm lump for 10 months. COMPARISON: None. TECHNIQUE: Grayscale and color Doppler images of the area of concern was obtained. FINDINGS: In the area of lump involving the left arm, no solid mass, cyst or fluid collection is noted. Underlying musculature appears grossly unremarkable. US/US extremity nonvascular LT IMPRESSION: No ultrasound abnormality seen in the area of concern involving the left arm. Impression dictated by: Adarsh White Jr., D.O. 05/02/2025 11:38 AM Dictation Location: [place] [address] Electronically authenticated by: [id number] Y Date: 05/02/2025 11:38
--- OUTSIDE RECORDS SUMMARY | 2025-05-02 10:31 | XMS_ITS | CCD ---
Author Organization [facility] Care Team Providers Care Title I Math Tutor Name Role Phone ИРИНА, CARLIE T Unavailable Unavailable CARLIE GIFFORD T Unavailable Unavailable OZ CONTRERAS Unavailable Unavailrashawn e DIANE, DR OZ Al[facility] Primary [facility] Unavailable KATERELizzy, DR OZ Alcantara Admitting Unavailable NADERELizzy, DR OZ Alcantara Attending Unavailable NADERER, DR OZ Alcantara Consulting Unavailable NADERER, DR OZ Alcantara Admitting Unavailable NADERELizzy, DR OZ Alcantara Attending Unavailable NADERER, DR OZ Alcantara Consulting Unavailable NADERER, DR OZ [facility] Unavailable Bhaskar Cantu Consulting Unavailable Dennis Payan Unavailable Kota Johnson Unavailable Oz Contreras MD Primary Care Provider [phone] Oz Contreras MD Unavailable OZ CONTRERAS Attending Unavailable DIANE, OZ Attending Unavailable KATERELizzy, OZ Attending Unavailable NADERELizzy, OZ Attending Unavailable DIANE, OZ Attending Unavailable Medications Current Medications Medication Drug Class(es) Dates Sig (Normalized) Sig (Original) 8 hr acetaminophen 650 mg extended release oral tablet (16 sources) take 1 tablet by mouth every eight hours as needed for pain acetaminophen (Tylenol 8 Hour) 650 MG ER tablet Take 650 mg by mouth every 8 (eight) hours if needed for mild pain Do not crush, chew, or split. Active acetaminophen 325 mg / HYDROcodone bitartrate 5 mg oral tablet (5 sources) Opioid Agonist Start: 01-17-2025 End: 01-24-2025 take 1 tablet by mouth four times daily as needed for pain HYDROcodone-acetami nophen (Mereta) 5-325 MG tablet Indications: Lumbosacral spondylosis with radiculopathy Take 1 tablet by mouth 4 (four) times a day as needed for severe pain for up to 7 days 28 tablet 01/17/2025 01/24/2025 Active Start: 01-06-2025 End: 01-17-2025 HYDROcodone-acetaminophen (N orco) 5-325 MG tablet 01/06/2025 01/17/2025 Discontinued (Reorder) acetaminophen 325 mg / oxyCODONE hydrochloride 5 mg oral tablet (9 sources) Opioid Agonist Start: 04-05-2025 End: 04-12-2025 take 1 tablet by mouth four times daily as needed for pain oxyCODONE-acetaminophen (Percocet) 5-325 MG tablet Indications: Lumbosacral spondylosis with radiculopathy Take 1 tablet by mouth 4 (four) times a day as needed for severe pain or moderate pain for up to 7 days 28 tablet 04/05/2025 04/12/2025 Active Start: 02-23-2025 End: 03-02-2025 take 1 tablet by mouth four times daily as needed for pain oxyCODONE-acetaminophen (Percocet) 5-325 MG tablet Indications: Lumbosacral spondylosis with radiculopathy Take 1 tablet by mouth 4 (four) times a day as needed for severe pain or moderate pain for up to 7 days 28 tablet 02/23/2025 03/02/2025 Active take 1 tablet by dee dee th every six hours as needed for pain oxyCODONE-acetaminophen (Percocet) 5-325 MG tablet Take 1 tablet by mouth every 6 (six) hours if needed for severe pain Active oxyCODONE-Acetam inophen 5-325 MG Oral for 7 Active ALPRAZolam 1 mg oral tablet (4 sources) Benzodiazepine ALPRAZolam 1 MG Oral for 30 Active 24 hr buPROPion hydrochloride 300 mg extended release oral tablet (20 sources) Aminoketone Start: 03-09-2025 take 1 tablet by mouth once daily buPROPion XL (Wellbutrin XL) 300 MG 24 hr tablet Indications: Major depressive disorder, recurrent, moderate (HCC) Take 1 tablet (300 mg) by mouth Daily 30 tablet 5 03/09/2025 Active Start: 08-20-2024 take 1 tablet by dee dee th once daily buPROPion XL (Wellbutrin XL) 300 MG 24 hr tablet Indications: Major depressive disorder, recurrent, moderate (CMS/HCC) Take 1 tablet (300 mg) by mouth Daily 30 tablet 5 08/20/2024 Active Start: 02-20-2024 take 1 tablet by dee dee once daily buPROPion XL (Wellbutrin XL) 300 MG 24 hr tablet Indications: Major depressive disorder, recurrent, moderate (CMS/HCC) Take 1 tablet (300 mg) by mouth Daily 30 tablet 5 02/20/2024 Active buPROPion HCl ER (XL) 150 MG Oral for 30 Active celecoxib 200 mg oral capsule (19 sources) Nonsteroidal Anti-inflammatory Drug Start: 12-21-2024 End: 02-23-2025 take 1 capsule by mouth twice daily as needed for pain celecoxib (CeleBREX) 200 MG capsule Indications: Lumbosacral spondylosis with radiculopathy Take 1 capsule (200 mg) by mouth 2 (two) times a day as needed for mild pain 60 capsule 5 02/23/2025 Active Start: 06-23-2024 take 1 capsule by mo [facility] twice daily as needed celecoxib (CeleBREX) 200 [...] 30 Active tiZANidine 4 mg oral tablet (18 sources) Central alpha-2 Adrenergic Agonist Start: 024 End: 025 take 1 tablet by mouth three times daily as needed for muscle spasms tiZANidine (Zanaflex) 4 MG tablet Indications: Lumbosacral spondylosis with radiculopathy Take 1 tablet (4 mg) by mouth 3 (three) times a day as needed for muscle spasms 60 tablet 2 01/17/2025 Active Completed/Discontinued Medications Medication Drug Class(es) Dates Sig (Normalized) Sig (Original) methocarbamol 750 mg oral tablet (3 sources) Muscle Relaxant Start: 01-06-2025 End: 01-17-2025 methocarbamol (Robaxin) 750 MG tablet 01/06/2025 01/17/2025 Discontinued predniSONE 20 mg oral tablet (3 sources) Start: 01-06-2025 End: 01-17-2025 predniSONE (Deltasone) 20 MG tablet 01/06/2025 01/17/2025 Discontinued Problems Active Problems Problem Classification Problem Date Documented Date Episodic/Chronic Anxiety disorders (19 sources) Generalized anxiety disorder; Translations: [Generalized anxiety disorder] Onset: 02-20-2024 02-20-2024 Chronic Chronic kidney disease (10 sources) Chronic kidney disease stage 3A ; Translations: [CKD stage 3a, GFR 45-59 ml/min] Onset: 11-24-2024 11-24-2024 Chronic Mood disorders (19 sources) Moderate recurrent major depression; Translations: [Major depressive disorder, recurrent, moderate] Onset: 02-20-2024 02-20-2024 Chronic Osteoarthritis (19 sources) Osteoarthritis of left knee joint; Translations: [Unilateral primary osteoarthritis, left knee] Onset: 02-20-2024 02-20-2024 Chronic Other nervous system disorders (3 sources) Chronic pain; Translations: [Other chronic pain] Chronic Other nervous system disorders (1 source) Other chronic pain Onset: 10-17-2021 Resolved: 10-17-2021 Chronic Other nutritional; endocrine; and metabolic disorders (15 sources) Severe obesity; Translations: [Class 3 severe obesity due to excess calories without serious comorbidity with body mass index (BMI) of 40.0 to 44.9 in adult ([facility])] Onset: 11-24-2024 11-24-2024 Chronic Other screening for suspected conditions (not mental disorders or infectious disease) (2 sources) Patient encounter status; Translations: [Encounter for screening mammogram for malignant neoplasm of breast] 02-23-2025 Episodic Spondylosis; intervertebral disc disorders; other back problems (20 sources) Other spondylosis with radiculopathy, lumbosacral region; Translations: [Lumbosacral spondylosis without myelopathy] Onset: 09-04-2021 Resolved: 10-17-2021 Chronic Superficial injury; contusion (20 sources) Contusion of trunk; Translations: [Contusion of abdominal wall, subsequent encounter] Onset: 07-01-2024 Resolved: 11-24-2024 07-01-2024 Episodic Unclassified (1 source) RETINAL DETACHMENT RIGHT EYE / RETINAL DETACHMENT RIGHT EYE() Onset: 02-19-2018 Unclassified (2 sources) CONTACT W/AND (SUSP) EXPOS COVID-19; Translations: [CONTACT W/AND (SUSP) EXPOS COVID-19] Onset: 10-16-2021 Unclassified (14 sources) Patient on antidepressant monitoring plan Onset: 08-20-2024 08-20-2024 Unclassified (14 sources) Baseline PHQ-9 Onset: 08-20-2024 08-20-2024 Viral infection (1 source) COVID-19; Translations: [COVID-19] Onset: 10-16-2021 Past or Other Problems Problem Classification Problem Date Documented Da te Episodic/Chronic Mood disorders (6 sources) Mood disorders Onset: 02-23-2025 02-23-2025 Other aftercare (15 sources) Long-term current use of drug therapy; Translations: [Other group home (current) drug therapy] Onset: 11-24-2024 11-24-2024 Episodic Other gastrointestinal disorders (17 sources) Chronic constipation; Translations: [Other constipation] Onset: 02-20-2024 Resolved: 11-24-2024 02-20-2024 Episodic Other non-traumatic joint disorders (17 sources) Chronic ankle pain; Translations: [Pain in right ankle and joints of right foot] Onset: 02-20-2024 02-20-2024 Episodic Other non-traumatic joint disorders (17 sources) Pain in right knee; Translations: [Pain in joint, lower leg] Onset: 02-20-2024 02-20-2024 Episodic Residual codes; unclassified (17 sources) Persistent insomnia; Translations: [Insomnia, unspecified] Onset: [...] Test Name Value Interpretation Reference Range Facility ALL CBC WITH AUTO DIFFon BASOPHILS ABSOLUTE AUTO 0 [facility] Basophils/100 WBC (Bld) 0.2 % 0.2 - 2.0 % [facility] Eosinophils/100 WBC (Bld) 1 % 0.9 - 7.0 % [facility] Erythrocyte distribution width (RBC) [Ratio] 13 % 11.0 - 15.0 % [facility] Hematocrit (Bld) [Volume fraction] 41.4 % 36.0 - 48.0 % [facility] Hemoglobin (Bld) [Mass/Vol] 13.3 g/dL 12.0 - 16.0 g/dL [facility] IMMATURE GRANULOCYTES ABS AUTO 0.02 [facility] Immature granulocytes/100 WBC (Bld) 0.2 % 0.0 - 0.5 % [facility] Interpretation and review of laboratory results Abnormal [facility] LYMPHOCYTES ABSOLUTE AUTO 2.8 [facility] Lymphocytes/100 WBC (Bld) 28.2 % 20.5 - 60.0 % [facility] MCH (RBC) [Entitic mass] 29.8 pg 26.7 - 34.0 pg [facility] MCHC (RBC) [Mass/Vol] 32.1 g/dL 29.9 - 35.2 g/dL [facility] MCV (RBC) [Entitic vol] 92.6 fL 81.0 - 99.0 fL [facility] MONOCYTES ABSOLUTE AUTO 0.9 High [facility] Monocytes/100 WBC (Bld) 8.8 % 1.7 - 12.0 % [facility] NEUTROPHILS ABSOLUTE AUTO 6.2 [facility] Neutrophils/100 WBC (Bld) 61.6 % 43.0 - 75.0 % [facility] Platelet mean volume (Bld) [Entitic vol] 10.5 fL 9.5 - 13.5 fL [facility] TBH EO # 0.1 [facility] PLT 339 [facility] RBC 4.47 [facility] WBC 10 [facility] XR Spine Lumbar Flex AND Ext Onlyon [...] by Adarsh Dougherty on 12/27/2021 0945 Normal [facility] Advertising Strategist Covid-19 PCR (CVDTB)on 09-13 SARS-CoV-2 (COVID-19) RNA BOONE+probe Ql (Unsp spec) Detected Critically abnormal NOT DETECTED [facility] Comment on above: Result Comment: This test is not yet approved or cleared by the [place] FDA. When there are no FDA-approved or cleared tests available, and other criteria are met, FDA can make tests available under an emergency access mechanism called an Emergency Use Authorization (EUA). The EUA for this test is supported by the Power Sweeper Operator of Health and Human Service's (HHS's) declaration [...] longer be used). Performed By: #### C [facility] #### [facility] [address] [place] [address] Dr. Teresita Stein MRI [facility] CONon 09-04-20 21 MRI [facility] MRI LUMBAR SPINE WITHOUT CONTRAST, 09/04/2021 HISTORY: [...] by: BHASKAR CANTU Date: 2021-09-04 17:13 Normal [facility] Lipid Panelon 12-21-2020 Cholesterol [Mass/Vol] 175 mg/dL Normal 140-200 [facility] Comment on above: Result Comment: Chol less than 200 mg/dl low risk Chol 201-239 mg/dl borderline risk Chol 240 mg/dl and greater high risk Performed By: #### V [id number], TSH3 wRFLX, LIPID #### [facility] [address] Cholesterol in HDL [Mass/Vol] 49 mg/dL Normal 35-85 [facility] Comment on above: Result Comment: HDL CHOL ATP-III CLASSIFICATION Cardiovascular Risk HDL > or equal to 60 mg/dL LOW HDL < 40 mg/dL HIGH Performed By: #### V [id number], TSH3 wRFLX, LIPID #### [facility] [address] Cholesterol.total/ Cholesterol in HDL [Mass ratio] 3.6 {ratio} Normal <5.0 [facility] Comment on above: Performed By: #### V [id number], TSH3 wRFLX, LIPID #### [facility] [address] LDL Cholesterol,Calcul ated 108 mg/dL High 0-100 [facility] Comment on above: Result Comment: LDL ATP III CLASSIFICATION LDL less than 100 mg/dL Optimal LDL 100-129 mg/dL Near or above optimal LDL 130-159 mg/dL Borderline high LDL 160-189 mg/dL High LDL greater than 189 mg/dL Very high Performed By: #### V [id number], TSH3 wRFLX, LIPID #### [facility] [address] [place] [id number] [facility] Triglyceride w/Reflex 88 mg/dL Normal 35-149 [facility] Comment on above: Result Comment: TRIG ATP III CLASSIFICATION TRIG less than 150 mg/dL Normal TRIG 150-199 mg/dL Borderline high TRIG 200-500 mg/dL High TRIG greater than 500 mg/dL Very high Standard traceable to the Center for Disease Conrtrol and Prevention (CDC) test method. Performed By: #### V [id number], TSH3 wRFLX, LIPID #### [facility] [address] [place] [id number] [facility] VLDL CHOLESTEROL 17 mg/dL Normal [facility] Comment on above: Performed By: #### V [id number], TSH3 wRFLX, LIPID #### [facility] [address] [place] [id number] [facility] Thyroid Stim Hormone w/Rflxo n 12-21-2020 Thyroid Stim Hormone w/Rflx 0.91 u[iU]/mL Normal 0.45-5.33 [facility] Comment on above: Performed By: #### V [id number], TSH3 wRFLX, LIPID #### [facility] [address] [place], [place] [id number] [facility] Vitamin D 25 Hydroxy Totalon 12-21-2020 Vitamin D 25 Hydroxy Total 18.7 ng/mL Low 30-100 [facility] Comment on above: Result Comment: DENNY MIN D STATUS 25(OH)VITAMIN D RANGE (ng/mL) Deficient <20 Insufficient 20 to <30 Sufficient 30 to 100 Reference: Manuel MF,Germaine WOOD, Shira FERRER, et al. Evaluation,treatment, and prevention of vitamin D deficiency; an Endocrine Society clinical practice guideline. JCEM. 2010; 96(7):1911-30. PERFORMED BY: [place] [address] PATHOLOGIST OFFICE RN NANETTE MOTA M.D. Performed By: #### V [id number], TSH3 wRFLX, LIPID #### [address] History and Physicalon 02-19 HIM IP Note OR Mechanic Insulator Normal [facility] OPERATIVE REPORTon 8 OPERATIVE REPORT [address] [id number] OPERATIVE REPORTPATIENT NAME: ELDA RAZO : 1960MED REC NO: [id number] ROOM:ACCOUNT NO: [id number] ADMIT DATE: 02/19/2018PROVIDER: Carlie DavisenDATE OF PROCEDURE: 02/19/2018PREOPERATIVE DIAGNOSIS: Rhegmatogenous retinal detachment with macula on,right eye.POSTOPERATIVE DIAGNOSIS: Rhegmatogenous retinal detachment with macula on,right eye.PROCEDURES: Pars plana vitrectomy with gas-fluid exchange and endolaser,right eye.ANESTHESIA: Monitored.SURGEON: CarlieAPOORVA Ortega FOR OPERATION: The patient is a 57-year-old [...] the office.CARLIE Casanova APARNAEND: 02/19/2018 13:25:24 [email or web address]#: [id number] Doc#: [id number]: Normal [facility] Op Noteon 02-19-2018 HIM IP Note OR Mechanic Insulator [facility] Progress Noteon 02-19-2018 HIM IP Note OR Mechanic Insulator [facility] HIM IP Note OR Mechanic Insulator [facility] HIM IP Note OR Mechanic Insulator [facility] HIM IP Note OR Mechanic Insulator [facility] HIM IP Note OR Mechanic Insulator [facility] HIM IP Note OR Mechanic Insulator [facility] Vital Signs Date Time Vital Sign Value Performing Clinician Facility 2025 08:28-0400 Body height 163.8 cm Oz Contreras MD Work Phone: [facility] 2025 08:28-0400 Body mass index (BMI) [Ratio] 39.21 kg/m2 Oz Contreras MD Work Phone: [facility] 2025 08:28-0400 Body temperature 97.5 [degF] Oz Contreras MD Work Phone: [facility] 2025 08:28-0400 Body weight 105.23 kg Oz Contreras MD Work Phone: [facility] 2025 08:28-0400 Diastolic blood pressure 92 mm[Hg] Oz Contreras MD Work Phone: [facility] 2025 08:28-0400 Heart rate 83 /min Oz Contreras MD Work Phone: [facility] 2025 08:28-0400 Respiratory rate 22 /min Oz Contreras MD Work Phone: [facility] 2025 08:28-0400 SaO2% (BldA) [Mass fraction] 98 % Oz Contreras MD Work Phone: [facility] 2025 08:28-0400 Systolic blood pressure 160 mm[Hg] Oz Contreras MD Work Phone: [facility] 02-23-2025 07:37-0400 Body height 163.8 cm Oz Contreras MD Work Phone: [facility] 02-23-2025 07:37-0400 Body mass index (BMI) [Ratio] 39.71 kg/m2 Oz Contreras MD Work Phone: [facility] 02-23-2025 07:37-0400 Body temperature 92.1 [degF] Oz Contreras MD Work Phone: [facility] 02-23-2025 07:37-0400 Body weight 106.59 kg Oz Contreras MD Work Phone: [facility] 02-23-2025 07:37-0400 Diastolic blood pressure 76 mm[Hg] Oz Contreras MD Work Phone: [facility] 02-23-2025 07:37-0400 Heart rate 98 /min Oz Contreras MD Work Phone: [facility] 02-23-2025 07:37-0400 Respiratory rate 22 /min Oz Contreras MD Work Phone: [facility] 02-23-2025 07:37-0400 SaO2% (BldA) [Mass fraction] 98 % Oz Contreras MD Work Phone: [facility] 02-23-2025 07:37-0400 Systolic blood pressure 140 mm[Hg] Oz Contreras MD Work Phone: [facility] 01-17-2025 13:48-0400 Body height 163.8 cm Oz Contreras MD Work Phone: [facility] 01-17-2025 13:48-0400 Body mass index (BMI) [Ratio] 40.73 kg/m2 Oz Contreras MD Work Phone: [facility] 01-17-2025 13:48-0400 Body temperature 97.3 [degF] Oz Contreras MD Work Phone: [facility] 01-17-2025 13:48-0400 Body weight 109.32 kg Oz Contreras MD Work Phone: [facility] 01-17-2025 13:48-0400 Diastolic blood pressure 92 mm[Hg] Oz Contreras MD Work Phone: [facility] 01-17-2025 13:48-0400 Heart rate 93 /min Oz Contreras MD Work Phone: [facility] 01-17-2025 13:48-0400 Respiratory rate 18 /min Oz Contreras MD Work Phone: [facility] 01-17-2025 13:48-0400 SaO2% (BldA) [Mass fraction] 95 % Oz Contreras MD Work Phone: [facility] 01-17-2025 13:48-0400 Systolic blood pressure 170 mm[Hg] Oz Contreras MD Work Phone: [facility] 11-24-2024 07:55-0500 Body height 163.8 cm Oz Contreras MD Work Phone: [facility] 11-24-2024 07:55-0500 Body mass index (BMI) [Ratio] 40.39 kg/m2 Oz Contreras MD Work Phone: [facility] 11-24-2024 07:55-0500 Body temperature 97.5 [degF] Oz Contreras MD Work Phone: [facility] 11-24-2024 07:55-0500 Body weight 108.41 kg Oz Contreras MD Work Phone: [facility] 11-24-2024 07:55-0500 Diastolic blood pressure 72 mm[Hg] Oz Contreras MD Work Phone: [facility] 11-24-2024 07:55-0500 Heart rate 106 /min Oz Contreras MD Work Phone: [facility] 11-24-2024 07:55-0500 Respiratory rate 18 /min Oz Contreras MD Work Phone: [facility] 11-24-2024 07:55-0500 SaO2% (BldA) [Mass fraction] 96 % Oz Contreras MD Work Phone: [facility] 11-24-2024 07:55-0500 Systolic blood pressure 160 mm[Hg] Oz Contreras MD Work Phone: [facility] 07-01-2024 15:30-0400 Body height 163.8 cm Oz Contreras MD Work Phone: [facility] 07-01-2024 15:30-0400 Body mass index (BMI) [Ratio] 40.05 kg/m2 Oz Contreras MD Work Phone: [facility] 07-01-2024 15:30-0400 Body temperature 96.21 [degF] Oz Contreras MD Work Phone: [facility] 07-01-2024 15:30-0400 Body weight 107.5 kg Oz Contreras MD Work Phone: [facility] 07-01-2024 15:30-0400 Diastolic blood pressure 78 mm[Hg] Oz Contreras MD Work Phone: [facility] 07-01-2024 15:30-0400 Heart rate 104 /min Oz Contreras MD Work Phone: [facility] 07-01-2024 15:30-0400 Respiratory rate 22 /min Oz Contreras MD Work Phone: [facility] 07-01-2024 15:30-0400 SaO2% (BldA) [Mass fraction] 96 % Oz Contreras MD Work Phone: [facility] 07-01-2024 15:30-0400 Systolic blood pressure 146 mm[Hg] Oz Contreras MD Work Phone: [facility] [employer] 09-26-2021 10:30-0500 Body height 167.64 cm Dennis Payan Other [facility] Other 09-26-2021 10:30-0500 Body mass index (BMI) [Ratio] 32.44 kg/m2 eDnnis Payan Other [facility] Other 09-26-2021 10:30-0500 Body weight 91.17 kg Dennis Payan Other [facility] Other 09-26-2021 10:30-0500 Diastolic blood pressure 76 mm[Hg] Dennis Payan Other [facility] Other 09-26-2021 10:30-0500 Systolic blood pressure 130 mm[Hg] Dennis Payan Other [facility] Other Encounters Encounter Date Encounter Type Care Provider Facility Start: 2025 End: 2025 Bamboo flowsheet Oz Contreras MD Work Phone: [facility] Start: 2025 End: 2025 Bamboo flowsheet Oz Contreras MD Work Phone: [facility] Start: 2025 End: 2025 Office outpatient visit 15 minutes Oz Contreras MD Work Phone: [facility] Comment on above: Hematoma of arm, lef t, subsequent encounter (Primary Dx) Start: 04-04-2025 End: 04-05-2025 Refill Oz Contreras MD Work Phone: [facility] Comment on above: Lumbosacral spondylo sis with radiculopathy Start: 02-23-2025 End: 02-23-2025 Bamboo flowsheet Oz Contreras MD Work Phone: [facility] Start: 02-23-2025 End: 02-23-2025 Bamboo flowsheet Oz Contreras MD Work Phone: [facility] Start: 02-23-2025 End: 02-23-2025 Patient encounter procedure Oz Contreras MD Work Phone: [facility] Work Phone: Start: 02-23-2025 End: 02-23-2025 Postop follow up visit related to original px Oz Contreras MD Work Phone: [facility] Comment on above: Medicare annual well ness visit, subsequent (Primary Dx); Lumbosacral spondylosis with radiculopathy; Breast cancer screening by mammogram Start: 02-23-2025 End: 02-23-2025 ambulatory OZ CONTRERAS Not Available Start: 01-17-2025 End: 01-17-2025 Bamboo flowsheet Oz Contreras MD Work Phone: [facility] Start: 01-17-2025 End: 01-17-2025 Bamboo flowsheet Oz Contreras MD Work Phone: [facility] Start: 01-17-2025 End: 01-17-2025 Office outpatient visit 15 minutes Oz Contreras MD Work Phone: [facility] Comment on above: Lumbosacral spondylo sis with radiculopathy (Primary Dx) Start: 01-17-2025 End: 01-17-2025 ambulatory OZ CONTRERAS Not Available Start: 11-24-2024 End: 11-24-2024 Bamboo flowsheet Oz Contreras MD Work Phone: [facility] Start: 11-24-2024 End: 11-24-2024 Bamboo flowsheet Oz Contreras MD Work Phone: [facility] Start: 11-24-2024 End: 11-24-2024 Clinisync Result Encounter Oz Contreras MD Work Phone: [facility] Unsolicited Start: 11-24-2024 End: 11-24-2024 Office outpatient visit 25 minutes Oz Contreras MD Work Phone: [facility] Comment on above: Major depressive dis order, recurrent, moderate (CMS/HCC) (Primary Dx); Generalized anxiety disorder (CMS/HCC); Lumbosacral spondylosis with radiculopathy; Primary osteoarthritis of left knee; Class 3 severe obesity due to excess calories without serious comorbidity with body mass index (BMI) of 40.0 to 44.9 in adult (CMS/HCC); Encounter for long-term (current) use of medications Start: 11-24-2024 End: 11-24-2024 ambulatory OZ CONTRERAS Not Available Start: 07-01-2024 End: 07-01-2024 Office outpatient visit 15 minutes Oz Contreras MD Work Phone: [facility] Comment on above: Contusion of abdomin al [...] 05-26-2024 ambulatory OZ CONTRERAS Not Available Start: 10-30-2021 (Procedure) Laxmi Johnson [facility] Start: 10-30-2021 End: 10-30-2021 ambulatory Kota Johnson Other [facility] Other Start: 10-19-2021 End: 10-19-2021 ambulatory Kota Johnson Other [facility] Other Start: 10-19-2021 Telephone encounter Kota Johnson [facility] Alterations Supervisor Start: 10-17-2021 End: 10-17-2021 ambulatory Kota Johnson Other [facility] Other Start: 10-17-2021 Office outpatient ne w 45 minutes Kota Johnson [facility] Start: 10-09-2021 End: 10-09-[address] OZ CONTRERAS Facility:[facility] Start: 09-26-2021 End: 09-26-2021 ambulatory Dennis Payan Other [facility] Other Start: 09-26-2021 Office outpatient ne w 30 minutes Dennis Payan [facility] Start: 09-04-2021 End: 09-05-[address] OZ CONTRERAS Facility:[facility] Start: 02-19-2018 End: 02-19-2018 Ambulatory CARLIE GIFFORD [facility] Procedures Date Procedure Procedure Detail Performing Clinician Start: 11-24-2024 ALL CBC WITH AUTO DIFF Oz Contreras MD Work Phone: Start: 02-19-2018 DISCHARGE PATIENT DAKOTAH Thakur ИРИНА Start: 02-19-2018 Continuous pulse oximetry CARLIE GIFFORD Start: 02-19-2018 ENCOURAGE DEEP BREAT AMANDA AND COUGHING CARLIE GIFFORD Start: 02-19-2018 NURSING COMMUNICATION P JH GIFFORD Start: 02-19-2018 BEDREST CARLIE MOULTON Start: 02-19-2018 INITIATE OXYGEN THER APY PROTOCOL CARLIE GIFFORD Start: 02-19-2018 NOTIFY PHYSICIAN (SPECIFY) CARLIE GIFFORD Start: 02-19-2018 POC UR-QUAL P JH GIFFORD Start: 02-19-2018 VITAL SIGNS CARLIE MOULTON Plan of Treatment Date Care Activity Detail Author Start: 06-17-2027 Screening for malign ant neoplasm of colon [facility] Start: 02-23-2026 Medicare Annual Wellness (AWV) Medicare Annual Wellness (AWV) [facility] Start: 08-31-2025 End: 08-31-2025 Patient encounter procedure 08/31/2025 7:45 AM EST Office Visit [facility] [address] [place] [address] Oz Contreras MD [address] [place] [phone] [facility] Start: 06-13-2025 Influenza vaccination [facility] Start: 2025 End: 2026 US Soft Tissue Palpable Mass US Soft Tissue Palpable Mass Imaging Routine Hematoma of arm, left, subsequent encounter Expected: 2025, Expires: 2026 [facility] Work Phone: Comment on above: Expected: 2025 , Expires: 2026 Start: 2025 End: 2025 Patient encounter procedure 2025 8:15 AM EDT Office Visit [facility] [address] [place] [phone] Oz Contreras MD [address] [place] [phone] Arrived [facility] Comment on above: Arrived Start: 02-23-2025 End: 04-25-2026 MG Breast - bilateral Screening Bilateral screening mammogram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 [address] [facility] 10/13/2410/12 Title I Math Tutor Relationship Specialty Start Date End Date Oz Contreras MD [address] [place] [address] [facility] 10/13/22 Oz Contreras MD [address] [place] [address] [facility] 10/13/2410/12 FOR RECORDS PERTAINING TO PATIENTS WHO ARE [...] BE BASED ON THE PRIMARY CLINICAL RECORDS. [facility] provides no warranty or guarantee of the accuracy or completeness of information in this document.
== END 2025-05-02 10:10 | disposition home or self-care (01) ==
LOC: US 10:11
PROVIDERS: PCP Family Medicine; Visit Provider Family Medicine
DX: S40.022D Contusion of left upper arm, subsequent encounter (principal)
CPT/HCPCS: 76882